=== PATIENT | male | born 1975 | race Caucasian/White ===

== ENCOUNTER → 2021-05-02 | Outpatient (CLI) | payer MEDICAID, OTHER ==
--- NOTE | 2021-05-02 15:35 | REP ---
INDICATION: LUMBAR FX. COMPARISON: None. TECHNIQUE: AP and lateral views FINDINGS: There is mild posterior disc space narrowing at all levels. There is a superior endplate compression deformity of L2 which is grade 1. Vertebral body height is otherwise within normal limits. Vertebral body alignment is within normal limits. The pedicles are intact bilaterally. IMPRESSION: Age undetermined grade 1 superior endplate compression fracture of L2. Other findings as described above. <Electronically signed by Joseph Cowan > 05/02/21 0124
== END ==
LOC: M SOG 13:10
PROVIDERS: ATTEND Orthopaedic Surgery
DX: S32.000A Wedge compression fracture of unspecified lumbar vertebra, initial encounter for closed fracture (principal); W18.30XA Fall on same level, unspecified, initial encounter; Y92.009 Unspecified place in unspecified non-institutional (private) residence as the place of occurrence of the external cause

== ENCOUNTER → 2021-07-23 | Outpatient (REF) | payer OTHER ==
[~2021-07-23] MED LIST: ASPE4PAD TOP; HYDR-3713 PO; METH-1165 PO
== END ==
LOC: M SFHCPLAZ 10:39
PROVIDERS: ATTEND Family Medicine
DX: R05.9 Cough, unspecified (principal)

== ENCOUNTER → 2021-08-16 | Outpatient (CLI) | payer OTHER ==
[2021-08-16 13:27] LABS: ALBUMIN 3.8 GM/DL (3.2-5.2); ALT/SGPT 35 U/L (12-78); BILIRUBIN,TOTAL 0.6 MG/DL (0.2-1.0); BLOOD UREA NITROGEN 6 MG/DL (7-18); CALCIUM LEVEL 8.9 MG/DL (8.5-10.1); CARBON DIOXIDE LEVEL 28 MEQ/L (21-32); CHLORIDE LEVEL 109 MEQ/L (98-107); CREATININE FOR GFR 1.04 MG/DL (0.70-1.30); GLOMERULAR FILTRATION RATE > 60.0 (>60); GLUCOSE, FASTING 95 MG/DL (70-100); POTASSIUM SERUM 4.2 MEQ/L (3.5-5.1); SODIUM LEVEL 143 MEQ/L (136-145); TOTAL PROTEIN 6.6 GM/DL (6.4-8.2)
== END ==
LOC: M PLALAB 10:54
PROVIDERS: ATTEND Student in an Organized Health Care Education/Training Program
DX: R51.9 Headache, unspecified (principal)

== ENCOUNTER 2021-08-27 05:10 | Emergency (ER) | payer OTHER ==
[~2021-08-27] VITALS: Ht 180.3 cm; Wt 95.5 kg
[2021-08-27 05:10] VITALS: BP 157/113
[2021-08-27] MEDS ORDERED: ACETAMINOPHEN 500 MG TAB PO ONE (05:35)
[2021-08-27] MEDS ORDERED: diphenhydrAMINE 25MG CAP PO ONE (05:35)
[2021-08-27] MEDS ORDERED: KETOROLAC 30 MG/ML 1ML VIAL IM ONE (05:35)
[2021-08-27] MEDS ORDERED: METOCLOPRAMIDE 10 MG TAB PO ONE (05:35)
== END 2021-08-27 06:13 | disposition home or self-care (01) ==
LOC: M ED 05:10
DX: G43.909 Migraine, unspecified, not intractable, without status migrainosus (principal); E78.5 Hyperlipidemia, unspecified; F17.200 Nicotine dependence, unspecified, uncomplicated; Z88.8 Allergy status to other drugs, medicaments and biological substances
CPT/HCPCS: 96372; 99282; J1885

== ENCOUNTER → 2021-09-02 | Outpatient (CLI) | payer OTHER | LOC: M PLAIMG 13:13 | PROVIDERS: ATTEND Student in an Organized Health Care Education/Training Program | DX: J32.0 Chronic maxillary sinusitis (principal) ==

== ENCOUNTER 2021-12-08 11:00 | Emergency (ER) | payer OTHER ==
[~2021-12-08] VITALS: Ht 180.3 cm; Wt 95.5 kg
[2021-12-08] MEDS ORDERED: LIDOCAINE 2% MDV 20ML VIAL SC ONE (13:45)
[2021-12-08] MEDS ORDERED: BACT800T5 PO (14:23)
[2021-12-08 14:40] VITALS: BP 118/66
== END 2021-12-08 14:53 | disposition home or self-care (01) ==
LOC: M ED 11:00
DX: L02.214 Cutaneous abscess of groin (principal); I10 Essential (primary) hypertension; Z88.8 Allergy status to other drugs, medicaments and biological substances; Z79.899 Other long term (current) drug therapy

== ENCOUNTER → 2021-12-10 | Outpatient (REF) | payer OTHER ==
[~2021-12-10] MED LIST changes: +BACT800T5 PO
== END ==
LOC: M SFHCPLAZ 15:54
PROVIDERS: ATTEND Family Medicine
DX: L02.224 Furuncle of groin (principal)

== ENCOUNTER → 2021-12-13 | Outpatient (REF) | payer OTHER | LOC: M SFHCPLAZ 15:17 | PROVIDERS: ATTEND Family Medicine | DX: E78.2 Mixed hyperlipidemia (principal) ==

== ENCOUNTER 2022-01-19 22:57 | Emergency (ER) | payer OTHER ==
[~2022-01-19] VITALS: Ht 180.3 cm; Wt 92.4 kg
[2022-01-19] MEDS ORDERED: LISI40TA4 (23:14)
[2022-01-20 01:19] LABS: GC DNA AMPLIFICATION POSITIVE (NEGATIVE)
[2022-01-20] MEDS ORDERED: cefTRIAXone 500MG VIAL (J0696 PER 250MG) IM ONE (01:45)
[2022-01-20] MEDS ORDERED: LIDOCAINE 1% SDV 5ML VIAL DILUENT ONE (01:45)
[2022-01-20 02:28] VITALS: BP 116/69
== END 2022-01-20 03:04 | disposition home or self-care (01) ==
LOC: M ED 22:57
DX: A54.9 Gonococcal infection, unspecified (principal); F17.200 Nicotine dependence, unspecified, uncomplicated; Z88.8 Allergy status to other drugs, medicaments and biological substances; Z88.6 Allergy status to analgesic agent; Z79.899 Other long term (current) drug therapy
CPT/HCPCS: 81001; 87086; 87661; 87810; 87850; 96372; 99283; J0696

== ENCOUNTER 2022-02-11 10:15 | Emergency (ER) | payer OTHER ==
[~2022-02-11] VITALS: Ht 180.3 cm; Wt 90.9 kg
[~2022-02-11 10:15] MED LIST changes: +LISI40TA4
[2022-02-11] MEDS ORDERED: ZONI100C67 (10:27)
[2022-02-11] MEDS ORDERED: RIZA10TA58 (10:27)
[2022-02-11] MEDS ORDERED: MECL25CH45 (10:27)
[2022-02-11] MEDS ORDERED: ATOR40TA75 (10:27)
[2022-02-11] MEDS ORDERED: VERA120T67 (10:27)
[2022-02-11] MEDS ORDERED: BUDE32SU6 (10:27)
[2022-02-11] MEDS ORDERED: PROA1AER2 (10:27)
[2022-02-11 12:04] VITALS: BP 108/78
== END 2022-02-11 12:05 | disposition home or self-care (01) ==
LOC: EDBD 10:15 → M ED 10:15
DX: G43.909 Migraine, unspecified, not intractable, without status migrainosus (principal); I10 Essential (primary) hypertension; E78.5 Hyperlipidemia, unspecified; F31.9 Bipolar disorder, unspecified; F20.9 Schizophrenia, unspecified; F41.9 Anxiety disorder, unspecified; F17.200 Nicotine dependence, unspecified, uncomplicated; Z88.8 Allergy status to other drugs, medicaments and biological substances; Z79.899 Other long term (current) drug therapy

== ENCOUNTER 2022-02-20 13:40 | Emergency (ER) | payer OTHER ==
[~2022-02-20] VITALS: Ht 180.3 cm; Wt 95.5 kg
[~2022-02-20 13:40] MED LIST changes: +ATOR40TA75; +BUDE32SU6; +MECL25CH45; +PROA1AER2; +RIZA10TA58; +VERA120T67; +ZONI100C67
[2022-02-20 14:06] VITALS: BP 109/73
== END 2022-02-20 16:20 | disposition left against medical advice (07) ==
LOC: M ED 13:40 → EDBD 13:40 → M ED 16:20
DX: Z53.21 Procedure and treatment not carried out due to patient leaving prior to being seen by health care provider (principal)

== ENCOUNTER 2022-08-02 18:08 | Emergency (ER) | payer OTHER ==
[~2022-08-02] VITALS: Ht 180.3 cm; Wt 92.7 kg
[2022-08-02 18:09] VITALS: BP 159/106
== END 2022-08-03 01:22 | disposition left against medical advice (07) ==
LOC: M ED 18:08
DX: Z53.21 Procedure and treatment not carried out due to patient leaving prior to being seen by health care provider (principal)

== ENCOUNTER 2022-09-27 13:29 | Emergency (ER) | payer OTHER ==
[~2022-09-27] VITALS: Ht 180.3 cm; Wt 90.0 kg
[2022-09-27] MEDS ORDERED: [UNRECOGNIZED DRUG - REMARK] (13:44)
[2022-09-27] MEDS ORDERED: FLUO40CA (13:44)
[2022-09-27] MEDS ORDERED: HYDR50TA70 (13:44)
[2022-09-27] MEDS ORDERED: AMLO1TAB24 (13:44)
[2022-09-27] MEDS ORDERED: AMIT50TA (13:44)
[2022-09-27] MEDS ORDERED: KETOROLAC 30 MG/ML 1ML VIAL IM ONE (17:15)
[2022-09-27] MEDS ORDERED: diphenhydrAMINE 50MG/ML VIAL IV ONE (17:15)
[2022-09-27] MEDS ORDERED: NS 1,000 ML IV ONE (17:15)
[2022-09-27] MEDS ORDERED: ACETAMINOPHEN 500 MG TAB PO ONE (17:15)
[2022-09-27] MEDS ORDERED: KETOROLAC 30 MG/ML 1ML VIAL IV ONE (18:10)
[2022-09-27 18:37] LABS: HEMATOCRIT 49.7 % (42.0-52.0); HEMOGLOBIN 17.1 g/dl (13.5-17.5); MEAN CORPUSCULAR HEMOGLOBIN 31.1 pg (27.0-33.0); MEAN CORPUSCULAR HGB CONC 34.4 g/dl (32.0-36.5); MEAN CORPUSCULAR VOLUME 90.4 fl (80.0-96.0); PLATELET COUNT, AUTOMATED 295 10^3/uL (150-450)
[2022-09-27 18:58] LABS: BLOOD UREA NITROGEN 8 MG/DL (9-23); CARBON DIOXIDE LEVEL 27 MMOL/L (20-31); CHLORIDE LEVEL 106 MMOL/L (98-107); CREATININE FOR GFR 0.88 MG/DL (0.70-1.30); GLOMERULAR FILTRATION RATE > 60.0 (>60); GLUCOSE, FASTING 88 MG/DL (60-100); POTASSIUM SERUM 4.2 MMOL/L (3.5-5.1); SODIUM LEVEL 139 MMOL/L (136-145)
[2022-09-27 20:12] VITALS: BP 165/90
== END 2022-09-27 20:17 | disposition home or self-care (01) ==
LOC: M ED 13:29
DX: R51.9 Headache, unspecified (principal); I10 Essential (primary) hypertension; F31.9 Bipolar disorder, unspecified; F43.10 Post-traumatic stress disorder, unspecified; F32.A Depression, unspecified; F17.200 Nicotine dependence, unspecified, uncomplicated
CPT/HCPCS: 80048; 83735; 85027; 96361; 96372; 96374; 96375; 99283; J1200; J1885

== ENCOUNTER 2022-11-10 18:22 | Emergency (ER) | payer OTHER ==
[~2022-11-10] VITALS: Ht 177.8 cm; Wt 88.9 kg
[~2022-11-10 18:22] MED LIST changes: +AMIT50TA; +AMLO1TAB24; +FLUO40CA; +HYDR50TA70; +[UNRECOGNIZED DRUG - REMARK]
[2022-11-10 19:23] LABS: AMORPHOUS SEDIMENT SMALL (NEGATIVE); APPEARANCE, URINE HAZY (CLEAR); BACTERIA, URINE AUTO NEGATIVE (NEGATIVE); BILIRUBIN, URINE AUTO NEGATIVE (NEGATIVE); BLOOD, URINE BLOOD NEGATIVE (NEGATIVE); COLOR, URINE YELLOW (YELLOW); GLUCOSE, URINE (UA) AUTO NEGATIVE (NEGATIVE); KETONE, URINE AUTO NEGATIVE (NEGATIVE); LEUKOCYTE ESTERASE, URINE AUTO NEGATIVE (NEGATIVE); NITRITE, URINE AUTO NEGATIVE (NEGATIVE); PROTEIN, URINE AUTO NEGATIVE (NEGATIVE); RBC, URINE AUTO 1 /HPF (0-3); SPECIFIC GRAVITY URINE AUTO 1.011 (1.002-1.035); SQUAMOUS EPITHELIAL CELL UR AU 0 /HPF (0-6); UROBILINOGEN, URINE AUTO 0.2 mg/dL (0.0-2.0); WBC, URINE AUTO 3 /HPF (0-3)
[2022-11-10 20:39] LABS: GC DNA AMPLIFICATION NEGATIVE (NEGATIVE)
[2022-11-10] MEDS ORDERED: AZITHROMYCIN 250MG TABLET PO ONE (22:05)
[2022-11-10] MEDS ORDERED: LIDOCAINE 1% SDV 5ML VIAL DILUENT ONE (22:05)
[2022-11-10] MEDS ORDERED: cefTRIAXone 500MG VIAL IM ONE (22:05)
[2022-11-10 22:30] VITALS: BP 138/85
== END 2022-11-10 22:30 | disposition home or self-care (01) ==
LOC: M ED 18:22
DX: A74.9 Chlamydial infection, unspecified (principal); I10 Essential (primary) hypertension; E78.5 Hyperlipidemia, unspecified; F41.9 Anxiety disorder, unspecified; F32.A Depression, unspecified; G43.909 Migraine, unspecified, not intractable, without status migrainosus; F17.200 Nicotine dependence, unspecified, uncomplicated
CPT/HCPCS: 81001; 87810; 87850; 96372; 99283; J0696

== ENCOUNTER → 2022-11-25 | Outpatient (REF) | payer OTHER ==
[2022-11-25 19:36] LABS: GC DNA AMPLIFICATION NEGATIVE (NEGATIVE)
== END ==
LOC: M SFHCPLAZ 16:45
PROVIDERS: ATTEND Student in an Organized Health Care Education/Training Program
DX: A64 Unspecified sexually transmitted disease (principal)

== ENCOUNTER → 2022-12-26 | Outpatient (REF) | payer OTHER, MEDICAID ==
[2022-12-26 17:38] LABS: HEMATOCRIT 41.2 % (42.0-52.0); HEMOGLOBIN 13.9 g/dl (13.5-17.5); MEAN CORPUSCULAR HGB CONC 33.7 g/dl (32.0-36.5); MEAN CORPUSCULAR VOLUME 94.9 fl (80.0-96.0); PLATELET COUNT, AUTOMATED 224 10^3/uL (150-450); RED BLOOD COUNT 4.34 10^6/uL (4.30-6.10); WHITE BLOOD COUNT 9.3 10^3/uL (4.0-10.0)
[2022-12-26 17:50] LABS: ALBUMIN 3.6 G/DL (3.2-5.2); ALKALINE PHOSPHATASE 98 U/L (46-116); ALT/SGPT 19 U/L (7.0-40); AST/SGOT 10 U/L (<34); BILIRUBIN,TOTAL 1.2 MG/DL (0.3-1.2); BLOOD UREA NITROGEN 8 MG/DL (9-23); CALCIUM LEVEL 9.2 MG/DL (8.5-10.1); CARBON DIOXIDE LEVEL 27 MMOL/L (20-31); CHLORIDE LEVEL 106 MMOL/L (98-107); CHOLESTEROL LEVEL 124 MG/DL (<200); CREATININE FOR GFR 0.99 MG/DL (0.70-1.30); GLOMERULAR FILTRATION RATE > 60.0 (>60); GLUCOSE, FASTING 82 MG/DL (60-100); HDL CHOLESTEROL 36.4 MG/DL (>40); LDL CHOLESTEROL 63.2 MG/DL (<100); NON-HDL-C 87.6 MG/DL; POTASSIUM SERUM 4.2 MMOL/L (3.5-5.1); SODIUM LEVEL 140 MMOL/L (136-145); TOTAL PROTEIN 6.2 G/DL (5.7-8.2); TRIGLYCERIDES LEVEL 122 MG/DL (<150)
[2022-12-26 17:51] LABS: THYROID STIMULATING HORMONE 0.955 uIU/ML (0.55-4.78)
[2022-12-26 18:21] LABS: HIV 1&2 SCREEN NEGATIVE (NEGATIVE)
[2022-12-26 18:29] LABS: HEPATITIS C VIRUS ABY INDEX 0.13 INDEX (<0.8)
== END ==
LOC: M LAB REF 16:25
PROVIDERS: ATTEND Physician Assistant
DX: I10 Essential (primary) hypertension (principal); Z11.59 Encounter for screening for other viral diseases; Z11.4 Encounter for screening for human immunodeficiency virus [HIV]